=== PATIENT | female | born 1950 | race Caucasian/White ===

== ENCOUNTER 2017-12-10 10:47 | Inpatient (IN) | payer MEDICARE, BC ==
[2017-12-04 12:40] LABS: PRE OP PROTIME 10.6 SECONDS (9.0-12.0)
[2017-12-04 12:44] LABS: ALBUMIN 4.1 G/DL (3.4-5.0); ALBUMIN/GLOBULIN RATIO 0.9 (1.1-1.5); ALKALINE PHOSPHATASE 122 IU/L (46-116); BLOOD UREA NITROGEN 17 MG/DL (7-18); BUN/CREATININE RATIO 19.1 (6.6-38.0); CALCIUM 9.4 MG/DL (8.5-10.1); CHLORIDE 100 MMOL/L (99-107); CREATININE 0.89 MG/DL (0.40-0.90); PRE OP ALT 57 U/L (30-65); PRE OP ANION GAP 8 (8-16); PRE OP AST 52 U/L (10-37); PRE OP BILIRUB, TOTAL 0.4 MG/DL (0.0-1.0); PRE OP GLUCOSE 104 MG/DL (70-104); PRE OP POTASSIUM 4.2 MMOL/L (3.4-5.1); PRE OP SODIUM 134 MMOL/L (135-145); TOTAL CARBON DIOXIDE 25.7 MMOL/L (24-32); TOTAL PROTEIN 8.5 G/DL (6.4-8.2); eGFR 64 ML/MIN
[2017-12-04 12:45] LABS: BASOPHILS # (AUTO) 0.1 X10'3 (0-0.2); BASOPHILS % (AUTO) 0.6 % (0-1); EOSINOPHILS # (AUTO) 0.2 X10'3 (0-0.9); EOSINOPHILS % (AUTO) 1.8 % (0-6); LYMPHOCYTES # (AUTO) 1.7 X10'3 (1.1-4.8); MEAN CORPUSCULAR HEMOGLOBIN 28.9 PG (27.0-31.0); MEAN CORPUSCULAR VOLUME 87.4 FL (78-98); MONOCYTES # (AUTO) 0.6 X10'3 (0-0.9); MONOCYTES % (AUTO) 5.3 % (2-12); NEUTROPHILS # (AUTO) 7.8 X10'3 (1.8-7.7); NEUTROPHILS % (AUTO) 76.3 % (42-75); PRE OP HEMATOCRIT 42.7 % (35.0-45.0); PRE OP HEMOGLOBIN 14.1 g/dL (12.0-16.0); PRE OP PLATELET COUNT 333 X10'3 (140-440); RED BLOOD COUNT 4.88 X10'6 (4.20-5.60); RED CELL DISTRIBUTION WIDTH 12.8 % (11.5-14.5)
[2017-12-10] VITALS (15 sets, daily range): BP systolic 112–156; BP diastolic 61–100
[~2017-12-10] VITALS: Ht 166.4 cm; Wt 81.0 kg
[~2017-12-10 10:47] MED LIST: Cefazolin 2GM/50ML dext iso,osmotic IVPB IV ONE; FLUT1AER INH; HYDR12.5 PO; PARO40TA PO; POTA10CA44 PO; ROPI0.252 PO; SPIR1POW3 PO; acetaminophen 325mg tablet PO ONE; albuterol 2.5 MG/3 ML nebule NEB ONE; famotidine 20mg tablet PO ONE; gabapentin 300mg capsule PO ONE; metoclopramide 5 mg/ml inj IV ONE; oxyCODONE SR 10mg (sust. release) tab -2 tabs (20mg) PO ONE; ringers solution, lacted 1,000 ML IV SCH; tranexamic acid inj. 1,000 MG in normal saline 100ml IV soln 90 ML IV ONE; vancomycin inj 1,500 MG in normal saline 300ml IV soln IV ONE
[2017-12-10] MEDS ORDERED: ROPINIRole 0.25mg tablet PO ONE (12:15)
[2017-12-10] MEDS ORDERED: ringers solution, lacted 1,000 ML IV SCH (13:21)
[2017-12-10] MEDS ORDERED: proCHLORperazine 10 MG/2 ml inj IV PRN (13:25)
[2017-12-10] MEDS ORDERED: morphine 4 MG/ML inj SYRINge IV PRN ×2 (13:25)
[2017-12-10] MEDS ORDERED: ondansetron/PF 4mg/2ml inj IV PRN ×2 (13:25→18:10)
[2017-12-10] MEDS ORDERED: meperidine/PF 25mg/ml syringe IV PRN ×3 (13:25)
[2017-12-10] MEDS ORDERED: ketorolac trometh. 30mg/ml inj. ONE (14:38)
[2017-12-10] MEDS ORDERED: bacitracin 15gm ointment TP ONE (14:39)
[2017-12-10] MEDS ORDERED: ROPIVAcaine 0.5% (5mg/ml) 30ml vial ONE ×2 (14:39→15:39)
[2017-12-10] MEDS ORDERED: epiNEPHrine 1 mg/ml inj ONE (14:39)
[2017-12-10] MEDS ORDERED: morphine 10mg/ml inj. ONE (14:39)
[2017-12-10] MEDS ORDERED: ceFAZolin 1000mg inj ONE (14:39)
[2017-12-10] MEDS ORDERED: MIDAZolam 1mg/ml 10ml vial ONE (15:04)
[2017-12-10] MEDS ORDERED: morphine /PF 1mg/ml 10ml inj. ONE (15:04)
[2017-12-10] MEDS ORDERED: fentaNYL/PF 50MCG/1 ML 2ML syringe ONE (15:04)
[2017-12-10] MEDS ORDERED: Thrombin (Bovine) 5,000 unit vial TP ONE (15:37)
[2017-12-10] MEDS ORDERED: LIDOcaine 1%/PF 5ML 10 MG/ML VIAL ONE (15:42)
[2017-12-10] MEDS ORDERED: vancomycin 1,000mg inj ONE (15:54)
[2017-12-10] MEDS ORDERED: ceFAZolin 1000mg inj IR ONE (16:05)
[2017-12-10] MEDS ORDERED: ROPIVAcaine 0.5% (5mg/ml) 30ml vial IJ ONE (16:06)
[2017-12-10] MEDS ORDERED: ketorolac trometh. 30mg/ml inj. IM ONE (16:16)
[2017-12-10] MEDS ORDERED: epiNEPHrine 1 mg/ml inj IM ONE (16:17)
[2017-12-10] MEDS ORDERED: bisacodyl 10mg suppository rectal RC PRN (18:10)
[2017-12-10] MEDS ORDERED: diphenhydrAMINE 25mg capsule PO PRN ×2 (18:10)
[2017-12-10] MEDS ORDERED: acetaminophen 325mg tablet PO PRN (18:10)
[2017-12-10] MEDS ORDERED: magnesium hydroxide 30ml (MOM) UD suspension PO PRN (18:10)
[2017-12-10] MEDS ORDERED: HYDROmorphone inj. 0.5 MG/0.5 ML DISP.SYRIN IV PRN ×2 (18:10)
[2017-12-10] MEDS ORDERED: vancomycin/NS 1 GM ADD-VANTAGE 250 ML IV SCH (20:00)
[2017-12-10] MEDS ORDERED: tranexamic acid inj. 1,000 MG in normal saline 100ml IV soln 100 ML IV ONE (21:10)
[2017-12-10] MEDS: gabapentin 300mg capsule PO SCH (21:25)
[2017-12-10] MEDS: sennosides 8.6mg tablet PO SCH (21:25)
[2017-12-11 02:00] VITALS: BP 126/72
[2017-12-11] MEDS: potassium cl 20mEq in 1/2 NS 1,000 ML IV SCH ×3 (04:06→20:13)
[2017-12-11] MEDS: oxyCODONE IR 5mg (immed. release) tablet PO PRN ×4 (05:12→22:10)
[2017-12-11 06:00] VITALS: BP 126/77
[2017-12-11 06:10] LABS: BASOPHILS % (AUTO) 0.1 % (0-1); EOSINOPHILS # (AUTO) 0.2 X10'3 (0-0.9); EOSINOPHILS % (AUTO) 1.6 % (0-6); HEMATOCRIT 32.3 % (35.0-45.0); HEMOGLOBIN 11.1 g/dl (12.0-16.0); LYMPHOCYTES # (AUTO) 0.8 X10'3 (1.1-4.8); LYMPHOCYTES % (AUTO) 5.7 % (21-51); MEAN CORPUSCULAR HGB CONC 34.3 % (33.0-36.5); MEAN CORPUSCULAR VOLUME 87.3 FL (78-98); MEAN PLATELET VOLUME 7.8 FL (7.4-10.4); MONOCYTES # (AUTO) 0.6 X10'3 (0-0.9); MONOCYTES % (AUTO) 4.4 % (2-12); NEUTROPHILS # (AUTO) 12.3 X10'3 (1.8-7.7); NEUTROPHILS % (AUTO) 88.2 % (42-75); PLATELET COUNT 187 X10'3 (140-440); RED CELL DISTRIBUTION WIDTH 13.4 % (11.5-14.5)
[2017-12-11 06:25] LABS: ANION GAP 7 (8-16); CHLORIDE 104 MMOL/L (99-107); POTASSIUM 4.7 MMOL/L (3.5-5.1); SODIUM 137 MMOL/L (135-145); TOTAL CARBON DIOXIDE 26.4 MMOL/L (24-32)
[2017-12-11] MEDS: gabapentin 300mg capsule PO SCH ×3 (07:27→20:53)
[2017-12-11] MEDS: ceFAZolin 1GM/D5W- ADD-VANTAGE 50 ML IV SCH ×2 (07:28)
[2017-12-11] MEDS: enoxaparin 40mg/0.4ml syringe SQ SCH (07:28)
[2017-12-11] MEDS ORDERED: non-formulary drug (Fluticasone/Vilanterol (Breo Ellipta 100-25 Mcg INH) 1 PUFF) INH SCH (08:00)
[2017-12-11] MEDS: ROPINIRole 0.25mg tablet PO SCH ×2 (09:37→20:01)
[2017-12-11] MEDS: HYDROchlorothiazide 12.5mg capsule PO SCH (09:37)
[2017-12-11] MEDS: potassium chloride 10mEq ER tablet PO SCH ×2 (09:37→20:01)
[2017-12-11 10:00] VITALS: BP 102/60
[2017-12-11] MEDS: albuterol 2.5 MG/3 ML nebule NEB SCH ×3 (10:12→19:34)
[2017-12-11] MEDS ORDERED: HYDROmorphone 1 mg/ml syringe ONE ×2 (14:41→20:11)
[2017-12-11 18:00] VITALS: BP 115/63
[2017-12-11] MEDS: budesonide 0.5mg/2ml UD nebule IH SCH (19:34)
[2017-12-11] MEDS: celeCOXIB 100mg capsule PO SCH (20:01)
[2017-12-11 20:49] VITALS: BP 94/51
[2017-12-11] MEDS: spironolactone 25 MG tablet PO SCH (20:53)
[2017-12-11] MEDS: PARoxetine 20mg tablet PO SCH (20:54)
[2017-12-11] MEDS: sennosides 8.6mg tablet PO SCH (20:55)
[2017-12-11 22:00] VITALS: BP 111/45
[2017-12-12] MEDS: oxyCODONE IR 5mg (immed. release) tablet PO PRN ×6 (01:44→23:41)
[2017-12-12 06:00] VITALS: BP 117/69
[2017-12-12 07:16] LABS: BASOPHILS % (AUTO) 0.2 % (0-1); EOSINOPHILS # (AUTO) 0.1 X10'3 (0-0.9); EOSINOPHILS % (AUTO) 2.2 % (0-6); HEMATOCRIT 26.9 % (35.0-45.0); HEMOGLOBIN 9.3 g/dl (12.0-16.0); LYMPHOCYTES # (AUTO) 1.3 X10'3 (1.1-4.8); LYMPHOCYTES % (AUTO) 18.7 % (21-51); MEAN CORPUSCULAR HEMOGLOBIN 30.3 PG (27.0-31.0); MEAN CORPUSCULAR HGB CONC 34.6 % (33.0-36.5); MEAN CORPUSCULAR VOLUME 87.5 FL (78-98); MEAN PLATELET VOLUME 7.9 FL (7.4-10.4); MONOCYTES # (AUTO) 0.7 X10'3 (0-0.9); MONOCYTES % (AUTO) 10.1 % (2-12); NEUTROPHILS # (AUTO) 4.7 X10'3 (1.8-7.7); NEUTROPHILS % (AUTO) 68.8 % (42-75); PLATELET COUNT 129 X10'3 (140-440); RED BLOOD COUNT 3.08 X10'6 (4.20-5.60); WHITE BLOOD COUNT 6.8 X10'3 (4.5-11.0)
[2017-12-12] MEDS ORDERED: HYDROmorphone 1 mg/ml syringe ONE ×3 (07:22→20:18)
[2017-12-12] MEDS: celeCOXIB 100mg capsule PO SCH ×2 (07:25→20:23)
[2017-12-12] MEDS: enoxaparin 40mg/0.4ml syringe SQ SCH (07:26)
[2017-12-12] MEDS: gabapentin 300mg capsule PO SCH ×3 (07:26→20:23)
[2017-12-12] MEDS: ROPINIRole 0.25mg tablet PO SCH ×2 (07:26→20:22)
[2017-12-12] MEDS: HYDROchlorothiazide 12.5mg capsule PO SCH (07:27)
[2017-12-12] MEDS: potassium chloride 10mEq ER tablet PO SCH ×2 (07:27→20:23)
[2017-12-12] MEDS: budesonide 0.5mg/2ml UD nebule IH SCH ×2 (08:42→19:50)
[2017-12-12] MEDS: albuterol 2.5 MG/3 ML nebule NEB SCH ×4 (08:42→19:50)
[2017-12-12 10:00] VITALS: BP 105/69
[2017-12-12 18:00] VITALS: BP 130/79
[2017-12-12] MEDS: spironolactone 25 MG tablet PO SCH (20:22)
[2017-12-12] MEDS: PARoxetine 20mg tablet PO SCH (20:22)
[2017-12-12] MEDS: sennosides 8.6mg tablet PO SCH (20:23)
[2017-12-12 22:00] VITALS: BP 104/57
[2017-12-13] MEDS: oxyCODONE IR 5mg (immed. release) tablet PO PRN ×2 (05:03→10:23)
[2017-12-13 06:00] VITALS: BP 116/70
[2017-12-13 07:26] LABS: BASOPHILS % (AUTO) 0.7 % (0-1); EOSINOPHILS # (AUTO) 0.2 X10'3 (0-0.9); EOSINOPHILS % (AUTO) 2.6 % (0-6); HEMATOCRIT 27.7 % (35.0-45.0); HEMOGLOBIN 9.4 g/dl (12.0-16.0); LYMPHOCYTES # (AUTO) 1.2 X10'3 (1.1-4.8); LYMPHOCYTES % (AUTO) 17.2 % (21-51); MEAN CORPUSCULAR HEMOGLOBIN 29.9 PG (27.0-31.0); MEAN CORPUSCULAR HGB CONC 33.8 % (33.0-36.5); MEAN CORPUSCULAR VOLUME 88.4 FL (78-98); MEAN PLATELET VOLUME 8.1 FL (7.4-10.4); MONOCYTES # (AUTO) 0.7 X10'3 (0-0.9); NEUTROPHILS # (AUTO) 4.8 X10'3 (1.8-7.7); NEUTROPHILS % (AUTO) 69.5 % (42-75); PLATELET COUNT 159 X10'3 (140-440); RED BLOOD COUNT 3.13 X10'6 (4.20-5.60); RED CELL DISTRIBUTION WIDTH 14.3 % (11.5-14.5); WHITE BLOOD COUNT 6.9 X10'3 (4.5-11.0)
[2017-12-13] MEDS: albuterol 2.5 MG/3 ML nebule NEB SCH (07:45)
[2017-12-13] MEDS: budesonide 0.5mg/2ml UD nebule IH SCH (07:46)
[2017-12-13] MEDS: celeCOXIB 100mg capsule PO SCH (08:25)
[2017-12-13] MEDS: ROPINIRole 0.25mg tablet PO SCH (08:25)
[2017-12-13] MEDS: HYDROchlorothiazide 12.5mg capsule PO SCH (08:25)
[2017-12-13] MEDS: gabapentin 300mg capsule PO SCH (08:25)
[2017-12-13] MEDS: potassium chloride 10mEq ER tablet PO SCH (08:25)
[2017-12-14] MEDS ORDERED: enoxaparin 30mg/0.3ml syringe SUBCUT SCH (08:00)
== END 2017-12-13 10:40 | disposition home or self-care (01) | DRG 467 ==
LOC: PAS IN 10:47 → EDSTATUS 14:30 → ORTHO 4S 19:30
PROVIDERS: ADMIT Orthopaedic Surgery; ATTEND Orthopaedic Surgery
PROC: 0SRC069 Replacement of Right Knee Joint with Oxidized Zirconium on Polyethylene Synthetic Substitute, Cemented, Open Approach (ICD-10-PCS; 2017-12-10)
PROC: 0SPC0JZ Removal of Synthetic Substitute from Right Knee Joint, Open Approach (ICD-10-PCS; principal; 2017-12-10 14:55)
DX: T84.032A Mechanical loosening of internal right knee prosthetic joint, initial encounter (principal); D62 Acute posthemorrhagic anemia; I10 Essential (primary) hypertension; T84.84XA Pain due to internal orthopedic prosthetic devices, implants and grafts, initial encounter; F32.9 Major depressive disorder, single episode, unspecified; J44.9 Chronic obstructive pulmonary disease, unspecified; Y83.1 Surgical operation with implant of artificial internal device as the cause of abnormal reaction of the patient, or of later complication, without mention of misadventure at the time of the procedure; Y92.89 Other specified places as the place of occurrence of the external cause; Z88.8 Allergy status to other drugs, medicaments and biological substances
CPT/HCPCS: 0232T; 36415; 71046; 73560; 80051; 80053; 85025; 85610; 85730; 87070; 87075; 94640; 94760; 97110; 97116; 97161; 97530; A7000; A9272; C1713; C1758; C1776; J0171; J0690; J1170; J1650; J1885; J2001; J2250; J2270; J2274; J2765; J2795; J3010; J3370; J7030; J7120; J7626

== ENCOUNTER 2019-06-14 10:52 | Emergency (ER) | payer MEDICARE, BC ==
[~2019-06-14] VITALS: Ht 167.6 cm; Wt 76.5 kg
[~2019-06-14 10:52] MED LIST changes: +CYCL-1 PO; -Cefazolin 2GM/50ML dext iso,osmotic IVPB IV ONE; +DOCU100C40 PO; +HYDR-4383 PO; -acetaminophen 325mg tablet PO ONE; -albuterol 2.5 MG/3 ML nebule NEB ONE; -famotidine 20mg tablet PO ONE; -gabapentin 300mg capsule PO ONE; -metoclopramide 5 mg/ml inj IV ONE; -oxyCODONE SR 10mg (sust. release) tab -2 tabs (20mg) PO ONE; -ringers solution, lacted 1,000 ML IV SCH; -tranexamic acid inj. 1,000 MG in normal saline 100ml IV soln 90 ML IV ONE; -vancomycin inj 1,500 MG in normal saline 300ml IV soln IV ONE
[2019-06-14 11:34] LABS: BASOPHILS % (AUTO) 0.3 % (0-1); EOSINOPHILS # (AUTO) 0.1 X10'3 (0-0.9); EOSINOPHILS % (AUTO) 0.9 % (0-6); HEMATOCRIT 42.7 % (35.0-45.0); HEMOGLOBIN 14.6 g/dl (12.0-16.0); LYMPHOCYTES # (AUTO) 1.6 X10'3 (1.1-4.8); LYMPHOCYTES % (AUTO) 15.7 % (21-51); MEAN CORPUSCULAR HEMOGLOBIN 30.1 PG (27.0-31.0); MEAN CORPUSCULAR HGB CONC 34.1 g/dL (33.0-36.5); MEAN CORPUSCULAR VOLUME 88.2 FL (78-98); MEAN PLATELET VOLUME 7.4 FL (7.4-10.4); MONOCYTES # (AUTO) 0.5 X10'3 (0-0.9); MONOCYTES % (AUTO) 4.6 % (2-12); NEUTROPHILS # (AUTO) 7.9 X10'3 (1.8-7.7); NEUTROPHILS % (AUTO) 78.5 % (42-75); PLATELET COUNT 246 X10'3 (140-440); RED BLOOD COUNT 4.84 X10'6 (4.20-5.60); RED CELL DISTRIBUTION WIDTH 13.8 % (11.5-14.5); WHITE BLOOD COUNT 10.1 X10'3 (4.5-11.0)
[2019-06-14 11:47] LABS: ALANINE AMINOTRANSFERASE 39 U/L (12-78); ALKALINE PHOSPHATASE 99 IU/L (46-116); ANION GAP 5 (8-16); ASPARTATE AMINO TRANSFERASE 29 U/L (10-37); BILIRUBIN,TOTAL 0.5 MG/DL (0.1-1.0); BLOOD UREA NITROGEN 10 MG/DL (7-18); CALCIUM 9.2 MG/DL (8.5-10.1); CHLORIDE 103 MMOL/L (99-107); GLUCOSE 96 MG/DL (70-104); LIPASE < 50 U/L (73-393); POTASSIUM 4.4 MMOL/L (3.5-5.1); SODIUM 138 MMOL/L (135-145); TOTAL CARBON DIOXIDE 29.6 MMOL/L (24-32); TOTAL PROTEIN 8.1 G/DL (6.4-8.2); eGFR 55 ML/MIN
[2019-06-14 12:24] LABS: CLARITY,URINE SLIGHTLY CLOUDY (Clear); COLOR,URINE YELLOW (Yellow); GLUCOSE, URINE NEGATIVE (Neg); KETONES,URINE NEGATIVE (Neg); LEUKOCYTE ESTERASE ,URINE SMALL (Neg); NITRITES, URINE NEGATIVE (Neg); OCCULT BLOOD,URINE NEGATIVE (Neg); PROTEIN,URINE NEGATIVE (Neg); UROBILINOGEN,URINE 0.2 E.U/dL (0.2-1.0)
[2019-06-14 12:25] LABS: UA COLLECTION TYPE CLN CATCH MIDSTREAM
[2019-06-14] MEDS ORDERED: LIDOcaine Viscous 15ml cup MM STA (12:27)
[2019-06-14] MEDS ORDERED: famotidine 20mg tablet PO ONE (12:30)
[2019-06-14] MEDS ORDERED: normal saline 1000ML IV soln IVB ONE (12:30)
[2019-06-14] MEDS ORDERED: ketorolac tromethamine 15mg/ml inj. IV ONE (12:30)
[2019-06-14] MEDS ORDERED: mag hydrox/Alum hydrox/simeth 30ml oral suspension PO ONE (12:30)
[2019-06-14 12:33] LABS: BACTERIA,URINE FEW /HPF (Neg); MUCUS STRANDS FEW /LPF (Neg); RBC,URINE 0-2 /HPF (0-2); SQUAMOUS EPITHELIAL CELL,UR MANY /LPF (FEW); WBC CLUMPS,URINE FEW /HPF (NEGATIVE)
[2019-06-14] MEDS ORDERED: DICY10CA88 PO (14:16)
[2019-06-14] MEDS ORDERED: FAMO20TA8 PO (14:16)
[2019-06-14] MEDS ORDERED: NITR100C6 PO (14:16)
[2019-06-14] MEDS ORDERED: ONDA4TAB6 PO (14:16)
[2019-06-14 14:44] VITALS: BP 143/70
[2019-06-14 17:22] LABS: OCCULT BLOOD STOOL NEGATIVE (Neg)
== END 2019-06-14 14:31 | disposition home or self-care (01) ==
LOC: ER 10:53
DX: R10.13 Epigastric pain (principal); R11.2 Nausea with vomiting, unspecified; I10 Essential (primary) hypertension; J44.9 Chronic obstructive pulmonary disease, unspecified; Z87.891 Personal history of nicotine dependence; Z88.5 Allergy status to narcotic agent; Z79.899 Other long term (current) drug therapy
CPT/HCPCS: 36415; 80053; 81001; 82272; 83690; 84484; 85025; 93005; 96361; 96374; 99284; J1885; J7030

== ENCOUNTER 2019-06-29 10:01 | Emergency (ER) | payer MEDICARE, BC ==
[~2019-06-29] VITALS: Ht 172.7 cm; Wt 90.0 kg
[~2019-06-29 10:01] MED LIST changes: +DICY10CA88 PO; +FAMO20TA8 PO; +NITR100C6 PO; +ONDA4TAB6 PO
[2019-06-29] MEDS ORDERED: pantoprazole 40 MG vial IV ONE (10:20)
[2019-06-29] MEDS ORDERED: ondansetron/PF 4mg/2ml inj IV ONE (10:20)
--- NOTE | 2019-06-29 10:22 | NUR ---
pt failed to give a urine sample
[2019-06-29 10:44] LABS: BASOPHILS % (AUTO) 0.1 % (0-1); EOSINOPHILS # (AUTO) 0.1 X10'3 (0-0.9); EOSINOPHILS % (AUTO) 1.4 % (0-6); HEMATOCRIT 39.7 % (35.0-45.0); HEMOGLOBIN 13.6 g/dl (12.0-16.0); LYMPHOCYTES # (AUTO) 0.2 X10'3 (1.1-4.8); LYMPHOCYTES % (AUTO) 2.4 % (21-51); MEAN CORPUSCULAR HGB CONC 34.3 g/dL (33.0-36.5); MEAN CORPUSCULAR VOLUME 87.6 FL (78-98); MEAN PLATELET VOLUME 7.6 FL (7.4-10.4); MONOCYTES # (AUTO) 0.8 X10'3 (0-0.9); MONOCYTES % (AUTO) 10.2 % (2-12); NEUTROPHILS % (AUTO) 85.9 % (42-75); PLATELET COUNT 196 X10'3 (140-440); RED BLOOD COUNT 4.54 X10'6 (4.20-5.60); RED CELL DISTRIBUTION WIDTH 13.9 % (11.5-14.5); WHITE BLOOD COUNT 8.2 X10'3 (4.5-11.0)
[2019-06-29 10:58] LABS: ALANINE AMINOTRANSFERASE 31 U/L (12-78); ALBUMIN 3.5 G/DL (3.4-5.0); ALKALINE PHOSPHATASE 77 IU/L (46-116); ANION GAP 11 (8-16); ASPARTATE AMINO TRANSFERASE 43 U/L (10-37); BILIRUBIN,TOTAL 0.7 MG/DL (0.1-1.0); BLOOD UREA NITROGEN 11 MG/DL (7-18); CALCIUM 8.5 MG/DL (8.5-10.1); CHLORIDE 105 MMOL/L (99-107); GLUCOSE 148 MG/DL (70-104); LIPASE < 50 U/L (73-393); SODIUM 141 MMOL/L (135-145); TOTAL CARBON DIOXIDE 24.8 MMOL/L (24-32); TOTAL PROTEIN 7.1 G/DL (6.4-8.2); eGFR 50 ML/MIN
[2019-06-29] MEDS ORDERED: ketorolac trometh inj. 60 MG/2 ML VIAL IM ONE (11:05)
[2019-06-29] MEDS ORDERED: orphenadrine citrate 60mg/2ml inj. IM ONE (11:05)
[2019-06-29] MEDS ORDERED: morphine 4 MG/ML inj SYRINge IV ONE (11:25)
[2019-06-29 12:29] LABS: CLARITY,URINE CLEAR (Clear); COLOR,URINE YELLOW (Yellow); GLUCOSE, URINE NEGATIVE (Neg); KETONES,URINE NEGATIVE (Neg); LEUKOCYTE ESTERASE ,URINE SMALL (Neg); NITRITES, URINE NEGATIVE (Neg); OCCULT BLOOD,URINE TRACE-INTACT (Neg); PROTEIN,URINE NEGATIVE (Neg); UROBILINOGEN,URINE 0.2 E.U/dL (0.2-1.0)
[2019-06-29 12:36] LABS: UA COLLECTION TYPE CLN CATCH MIDSTREAM
[2019-06-29 12:48] LABS: MUCUS STRANDS MODERATE /LPF (Neg); SQUAMOUS EPITHELIAL CELL,UR MODERATE /LPF (FEW)
[2019-06-29 12:51] LABS: BACTERIA,URINE 1+ /HPF (Neg); RBC,URINE 0-2 /HPF (0-2); WBC,URINE 0-4 /HPF (0-4)
--- NOTE | 2019-06-29 13:20 | NUR ---
assumed care of pt from Odette [facility]
[2019-06-29] MEDS ORDERED: CYCL-1 PO (13:41)
[2019-06-29 13:55] VITALS: BP 109/55
== END 2019-06-29 13:57 | disposition home or self-care (01) ==
LOC: ER 10:01
DX: M54.9 Dorsalgia, unspecified (principal); R11.2 Nausea with vomiting, unspecified; R19.7 Diarrhea, unspecified; I10 Essential (primary) hypertension; J44.9 Chronic obstructive pulmonary disease, unspecified; Z88.8 Allergy status to other drugs, medicaments and biological substances; Z79.899 Other long term (current) drug therapy
CPT/HCPCS: 36415; 74176; 80053; 81001; 83690; 85025; 85610; 87088; 96372; 96374; 96375; 99284; C9113; J1885; J2270; J2360; J2405

== ENCOUNTER 2019-07-05 01:03 | Emergency (ER) | payer MEDICARE, BC ==
[~2019-07-05] VITALS: Ht 167.6 cm; Wt 75.9 kg
[2019-07-05] MEDS ORDERED: orphenadrine citrate 60mg/2ml inj. IM ONE (01:10)
[2019-07-05] MEDS ORDERED: ondansetron/PF 4mg/2ml inj IV ONE (01:10)
[2019-07-05] MEDS ORDERED: morphine 4 MG/ML inj SYRINge IV ONE (01:10)
[2019-07-05] MEDS ORDERED: ketorolac trometh. 30mg/ml inj. IV ONE (01:10)
[2019-07-05 01:49] VITALS: BP 149/87
== END 2019-07-05 01:51 | disposition home or self-care (01) ==
LOC: ER 01:03
DX: M54.5 Low back pain (principal); G89.29 Other chronic pain; R11.2 Nausea with vomiting, unspecified; I10 Essential (primary) hypertension; J44.9 Chronic obstructive pulmonary disease, unspecified; Z88.5 Allergy status to narcotic agent; Z79.899 Other long term (current) drug therapy
CPT/HCPCS: 96372; 96374; 96375; 99284; J1885; J2270; J2360; J2405

== ENCOUNTER 2021-12-05 12:39 | Emergency (ER) | payer MEDICARE, BC ==
[~2021-12-05] VITALS: Ht 167.6 cm; Wt 62.7 kg
[2021-12-05 12:42] VITALS: BP 169/96
[2021-12-05 13:10] LABS: BASOPHILS # (AUTO) 0.1 X10'3 (0-0.2); EOSINOPHILS # (AUTO) 0.1 X10'3 (0-0.9); EOSINOPHILS % (AUTO) 1.1 % (0-6); HEMATOCRIT 42.1 % (35.0-45.0); HEMOGLOBIN 14.2 g/dl (12.0-16.0); LYMPHOCYTES # (AUTO) 1.1 X10'3 (1.1-4.8); LYMPHOCYTES % (AUTO) 15.3 % (21-51); MEAN CORPUSCULAR HEMOGLOBIN 29.8 PG (27.0-31.0); MEAN CORPUSCULAR HGB CONC 33.8 g/dL (33.0-36.5); MEAN CORPUSCULAR VOLUME 88.1 FL (78-98); MEAN PLATELET VOLUME 7.4 FL (7.4-10.4); MONOCYTES # (AUTO) 0.3 X10'3 (0-0.9); MONOCYTES % (AUTO) 4.3 % (2-12); NEUTROPHILS # (AUTO) 5.4 X10'3 (1.8-7.7); NEUTROPHILS % (AUTO) 78.3 % (42-75); PLATELET COUNT 231 X10'3 (140-440); RED BLOOD COUNT 4.78 X10'6 (4.20-5.60); RED CELL DISTRIBUTION WIDTH 14.1 % (11.5-14.5); WHITE BLOOD COUNT 6.9 X10'3 (4.5-11.0)
[2021-12-05 13:25] LABS: ALANINE AMINOTRANSFERASE 33 U/L (12-78); ALBUMIN 3.8 G/DL (3.4-5.0); ALKALINE PHOSPHATASE 88 IU/L (46-116); ANION GAP 11 (8-16); ASPARTATE AMINO TRANSFERASE 23 U/L (10-37); BILIRUBIN,TOTAL 0.4 MG/DL (0.1-1.0); BLOOD UREA NITROGEN 11 MG/DL (7-18); BUN/CREATININE RATIO 11.8 (6.6-38.0); CHLORIDE 106 MMOL/L (99-107); CREATININE 0.93 MG/DL (0.40-0.90); GLUCOSE 182 MG/DL (70-104); POTASSIUM 4.1 MMOL/L (3.5-5.1); SODIUM 141 MMOL/L (135-145); TOTAL PROTEIN 7.5 G/DL (6.4-8.2); eGFR 60 ML/MIN
== END 2021-12-05 19:52 | disposition left against medical advice (07) ==
LOC: ER 12:40
DX: R53.83 Other fatigue (principal); R05.9 Cough, unspecified; R11.10 Vomiting, unspecified; R19.7 Diarrhea, unspecified; Z53.21 Procedure and treatment not carried out due to patient leaving prior to being seen by health care provider
CPT/HCPCS: 36415; 80053; 85025

== ENCOUNTER 2023-07-31 22:16 | Emergency (ER) | payer MEDICARE, BC ==
[~2023-07-31] VITALS: Ht 167.6 cm; Wt 65.9 kg
[~2023-07-31 22:16] MED LIST changes: +PARO-154 PO; -PARO40TA PO; -POTA10CA44 PO; +POTA10CA85 PO
[2023-07-31 22:41] VITALS: BP 119/70; PULSE 81; RESP 19; TEMP 97.9; O2SAT 91
== END 2023-07-31 23:47 | disposition home or self-care (01) ==
LOC: ER 22:16
DX: S93.402A Sprain of unspecified ligament of left ankle, initial encounter (principal); I10 Essential (primary) hypertension; G89.29 Other chronic pain; M54.9 Dorsalgia, unspecified; J44.9 Chronic obstructive pulmonary disease, unspecified; Z88.8 Allergy status to other drugs, medicaments and biological substances; W01.0XXA Fall on same level from slipping, tripping and stumbling without subsequent striking against object, initial encounter; Y93.89 Activity, other specified; Y92.009 Unspecified place in unspecified non-institutional (private) residence as the place of occurrence of the external cause; Y99.8 Other external cause status
CPT/HCPCS: 73610; 99284; L4360

== ENCOUNTER 2023-08-03 03:05 | Inpatient (IN) | payer MEDICARE, BC ==
[~2023-08-03] VITALS: Ht 167.6 cm; Wt 65.4 kg
[2023-08-03] MEDS: ondansetron/PF 4mg/2ml inj IV ONE (03:54)
[2023-08-03 04:16] LABS: ISTAT CREATININE 0.7 mg/dL (0.6-1.1); ISTAT HGB 13.6 g/dl (12.0-16.0); ISTAT IONIZED CALCIUM 1.23 mmol/L (1.03-1.32); ISTAT K 3.4 mmol/L (3.5-5.1); POC BUN/CREATININE RATIO 17.1 (6.6-38.0)
[2023-08-03] MEDS: HYDROmorphone 1 mg/ml syringe IV ONE (04:16)
[2023-08-03] MEDS: ringers solution, lacted 1,000 ML IV ONE (04:18)
[2023-08-03 04:20] LABS: BASOPHILS # (AUTO) 0.1 X10'3 (0-0.2); HEMATOCRIT 40.4 % (35.0-45.0); HEMOGLOBIN 13.9 g/dl (12.0-16.0); LYMPHOCYTES # (AUTO) 0.9 X10'3 (1.1-4.8); MEAN CORPUSCULAR HEMOGLOBIN 28.1 PG (27.0-31.0); MONOCYTES # (AUTO) 0.7 X10'3 (0-0.9)
[2023-08-03 04:22] LABS: BASOPHILS % (AUTO) 0.8 % (0-1); EOSINOPHILS # (AUTO) 0.2 X10'3 (0-0.9); EOSINOPHILS % (AUTO) 2.2 % (0-6); LYMPHOCYTES % (AUTO) 11.7 % (21-51); MEAN CORPUSCULAR HGB CONC 34.5 g/dL (33.0-36.5); MEAN CORPUSCULAR VOLUME 81.6 FL (78-98); MONOCYTES % (AUTO) 8.3 % (2-12); NEUTROPHILS # (AUTO) 6.2 X10'3 (1.8-7.7); PLATELET COUNT 264 X10'3 (140-440); RED BLOOD COUNT 4.95 X10'6 (4.20-5.60); RED CELL DISTRIBUTION WIDTH 14.6 % (11.5-14.5)
[2023-08-03] MEDS ORDERED: iohexol 300mg/ml 100ml inj. ONE (04:25)
[2023-08-03 04:37] LABS: ALANINE AMINOTRANSFERASE 16 U/L (12-78); ALBUMIN 3.5 G/DL (3.4-5.0); ALBUMIN/GLOBULIN RATIO 0.9 (1.1-1.5); ALKALINE PHOSPHATASE 87 IU/L (46-116); ANION GAP 11 (8-16); ASPARTATE AMINO TRANSFERASE 21 U/L (10-37); BILIRUBIN,TOTAL 0.6 MG/DL (0.1-1.0); BLOOD UREA NITROGEN 12 MG/DL (7-18); CALCIUM 9.2 MG/DL (8.5-10.1); CHLORIDE 106 MMOL/L (99-107); CREATININE 0.86 MG/DL (0.40-0.90); GLUCOSE 125 MG/DL (70-104); POTASSIUM 3.5 MMOL/L (3.5-5.1); SODIUM 142 MMOL/L (135-145); TOTAL CARBON DIOXIDE 24.7 MMOL/L (24-32); TOTAL PROTEIN 7.5 G/DL (6.4-8.2); eCRCL 57 ML/MIN; eGFR 65 ML/MIN
[2023-08-03 04:44] LABS: LIPASE 12 U/L (16-77); PRO BRAIN NATRIURETIC PEPTIDE 557 PG/ML (0-125)
[2023-08-03] MEDS: HYDROmorphone inj. 0.5 MG/0.5 ML DISP.SYRIN IV PRN ×2 (05:00→20:06)
[2023-08-03] MEDS: piperacillin/tazo 4.5gm/100ml 100 ML IV STA (06:39)
[2023-08-03] MEDS ORDERED: potassium Cl 20 mEq SR tablet PO PRN ×2 (08:30)
[2023-08-03] MEDS ORDERED: magnesium 4gm in 100ml NS 100 ML IV PRN (08:30)
[2023-08-03] MEDS ORDERED: morphine 2 MG/ML inj. syringe IV PRN (08:30)
[2023-08-03] MEDS ORDERED: magnesium 2GM in 50ml NS 50 ML IV PRN (08:30)
[2023-08-03] MEDS ORDERED: magnesium Cl slow-release 64mg tablet PO PRN (08:30)
[2023-08-03] MEDS ORDERED: magnesium hydroxide 30ml (MOM) UD suspension PO PRN (08:30)
[2023-08-03] MEDS ORDERED: potassium Cl 40MEQ/1/2NS 520ml 520 ML IV PRN (08:30)
[2023-08-03] MEDS ORDERED: mag hydrox/Alum hydrox/simeth 30ml oral suspension PO PRN (08:30)
[2023-08-03 09:42] LABS: BILIRUBIN,URINE NEGATIVE (Neg); CLARITY,URINE SLIGHTLY CLOUDY (Clear); COLOR,URINE YELLOW (Yellow); GLUCOSE, URINE NEGATIVE (Neg); KETONES,URINE NEGATIVE (Neg); LEUKOCYTE ESTERASE ,URINE NEGATIVE (Neg); NITRITES, URINE POSITIVE (Neg); OCCULT BLOOD,URINE TRACE-INTACT (Neg); PROTEIN,URINE 30 mg/dl (Neg); UROBILINOGEN,URINE 0.2 E.U/dL (0.2-1.0)
[2023-08-03 09:44] LABS: UA COLLECTION TYPE CLN CATCH MIDSTREAM
[2023-08-03 09:53] LABS: SQUAMOUS EPITHELIAL CELL,UR MODERATE /LPF (FEW)
[2023-08-03 09:54] LABS: MUCUS STRANDS FEW /LPF (Neg)
[2023-08-03 09:56] LABS: BACTERIA,URINE 4+ /HPF (Neg); RBC,URINE 0-2 /HPF (0-2); TRANSITIONAL EPI CELLS,URINE FEW /HPF; WBC,URINE 0-4 /HPF (0-4)
[2023-08-03] MEDS: dextrose 5%-1/2 normal saline 1,000 ML IV SCH (10:51)
[2023-08-03] MEDS: ondansetron/PF 4mg/2ml inj IV PRN (11:50)
[2023-08-03] MEDS ORDERED: LOSA100T58 PO (15:24)
[2023-08-03] MEDS ORDERED: HYDR-3965 PO (15:24)
[2023-08-03] MEDS ORDERED: GABA600T13 PO (15:24)
[2023-08-03] MEDS ORDERED: TRAZ150T78 PO (15:24)
[2023-08-03] MEDS ORDERED: ONDA-103 PO (15:24)
[2023-08-03 16:00] VITALS: RESP 20
[2023-08-03] MEDS ORDERED: ipratropium/albuterol 3ml nebule NEB PRN (16:20)
[2023-08-03] MEDS: proCHLORperazine 10 MG/2 ml inj IV PRN (16:25)
[2023-08-03] MEDS: morphine 2 MG/ML inj. syringe IV PRN (16:30)
[2023-08-03] MEDS: piperacillin/tazo 3.375gm/50ml 50 ML IV SCH (16:36)
[2023-08-03] MEDS: hydrALAZINE 20mg/ml inj. IV PRN (16:52)
[2023-08-03] MEDS ORDERED: BACL10TA2 PO (17:07)
[2023-08-03] MEDS ORDERED: FLUD0.1T PO (17:07)
[2023-08-03] MEDS ORDERED: BUSP10TA3 PO (17:07)
[2023-08-03 17:15] VITALS: PULSE 98; RESP 16; O2SAT 98
[2023-08-03] MEDS ORDERED: HYDROcodone/acetaminophen 5mg/325mg tablet PO PRN (17:50)
[2023-08-03] MEDS ORDERED: ondansetron 4mg rapidly disintigrating tab PO PRN (17:50)
[2023-08-03] MEDS: fludrocortisone acetate 0.1mg tablet PO SCH (17:50)
[2023-08-03] MEDS ORDERED: baclofen 10mg tablet PO PRN (17:50)
[2023-08-03 18:30] VITALS: RESP 20; O2SAT 96
[2023-08-03 19:00] VITALS: BP 192/99; PULSE 105; RESP 16; TEMP 97.4; O2SAT 96
[2023-08-03] MEDS ORDERED: traZODone 150mg tablet PO SCH (20:00)
[2023-08-03] MEDS: docusate sod 100mg capsule PO SCH (20:00)
[2023-08-03] MEDS: K and/or MAG REPLACEMENT MC SCH (20:00)
[2023-08-03] MEDS: ROPINIRole 0.25mg tablet PO SCH (20:00)
[2023-08-03 20:02] VITALS: PULSE 88; RESP 16; O2SAT 97
[2023-08-03] MEDS: budesonide 0.5mg/2ml UD nebule IH SCH (20:02)
[2023-08-03] MEDS: busPIRone 5mg tablet PO SCH (21:47)
[2023-08-03] MEDS: traZODone 150mg tablet PO SCH (21:47)
[2023-08-03] MEDS: enoxaparin 40mg/0.4ml syringe SQ SCH (21:48)
[2023-08-03] MEDS: PARoxetine 20mg tablet PO SCH (21:52)
[2023-08-03 22:00] VITALS: BP 164/84; PULSE 117; RESP 20; TEMP 96.9; O2SAT 99
[2023-08-04] MEDS ORDERED: albuterol 2.5 MG/3 ML nebule NEB SCH (03:00)
[2023-08-04 06:24] VITALS: BP 115/61; PULSE 88; RESP 18; TEMP 97; O2SAT 94
[2023-08-04 06:34] LABS: ALANINE AMINOTRANSFERASE 13 U/L (12-78); ALBUMIN 3.3 G/DL (3.4-5.0); ALBUMIN/GLOBULIN RATIO 0.9 (1.1-1.5); ALKALINE PHOSPHATASE 76 IU/L (46-116); ANION GAP 9 (8-16); ASPARTATE AMINO TRANSFERASE 22 U/L (10-37); BILIRUBIN,TOTAL 0.5 MG/DL (0.1-1.0); BLOOD UREA NITROGEN 9 MG/DL (7-18); BUN/CREATININE RATIO 10.6 (10.0-20.0); CALCIUM 8.9 MG/DL (8.5-10.1); CHLORIDE 103 MMOL/L (99-107); CREATININE 0.85 MG/DL (0.40-0.90); GLUCOSE 138 MG/DL (70-104); MAGNESIUM 1.9 MG/DL (1.5-2.4); SODIUM 135 MMOL/L (135-145); TOTAL PROTEIN 7.1 G/DL (6.4-8.2); eCRCL 58 ML/MIN; eGFR 66 ML/MIN
[2023-08-04 06:37] LABS: POTASSIUM 3.4 MMOL/L (3.5-5.1)
[2023-08-04 06:52] LABS: BASOPHILS # (AUTO) 0.1 X10'3 (0-0.2); BASOPHILS % (AUTO) 0.8 % (0-1); EOSINOPHILS % (AUTO) 0.5 % (0-6); HEMATOCRIT 35.1 % (35.0-45.0); HEMOGLOBIN 11.9 g/dl (12.0-16.0); LYMPHOCYTES # (AUTO) 0.6 X10'3 (1.1-4.8); LYMPHOCYTES % (AUTO) 9.1 % (21-51); MEAN CORPUSCULAR HEMOGLOBIN 27.9 PG (27.0-31.0); MEAN CORPUSCULAR HGB CONC 33.8 g/dL (33.0-36.5); MEAN CORPUSCULAR VOLUME 82.6 FL (78-98); MEAN PLATELET VOLUME 7.8 FL (7.4-10.4); MONOCYTES # (AUTO) 0.6 X10'3 (0-0.9); NEUTROPHILS # (AUTO) 5.2 X10'3 (1.8-7.7); NEUTROPHILS % (AUTO) 80.6 % (42-75); PLATELET COUNT 203 X10'3 (140-440); RED BLOOD COUNT 4.24 X10'6 (4.20-5.60); RED CELL DISTRIBUTION WIDTH 14.7 % (11.5-14.5); WHITE BLOOD COUNT 6.4 X10'3 (4.5-11.0)
[2023-08-04] MEDS: losartan 50mg tablet PO SCH (07:35)
[2023-08-04] MEDS: gabapentin 300mg capsule PO SCH (07:35)
[2023-08-04 08:00] VITALS: RESP 14; O2SAT 94
[2023-08-04] MEDS: ibuprofen 200mg tablet PO PRN (08:11)
[2023-08-04 08:35] VITALS: PULSE 79; RESP 16; O2SAT 92
[2023-08-04 10:36] VITALS: RESP 18
[2023-08-04 11:36] VITALS: BP 136/66; PULSE 89; RESP 20; TEMP 98.1; O2SAT 98
[2023-08-04] MEDS ORDERED: METR-159 PO (12:56)
[2023-08-04] MEDS ORDERED: CIPR-202 PO (12:56)
[2023-08-04] MEDS ORDERED: LOPE-190 PO (12:56)
[2023-08-04] MEDS ORDERED: ONDA4TAB12 PO (12:56)
== END 2023-08-04 13:50 | disposition home or self-care (01) | DRG 373 ==
LOC: ER 03:06 → ED HOLD 08:41 → SUR 3N 16:13
PROVIDERS: ADMIT Internal Medicine; ATTEND Internal Medicine
PROC: BW211ZZ Computerized Tomography (CT Scan) of Abdomen and Pelvis using Low Osmolar Contrast (ICD-10-PCS; principal; 2023-08-03)
DX: A04.9 Bacterial intestinal infection, unspecified (principal); J44.9 Chronic obstructive pulmonary disease, unspecified; G25.81 Restless legs syndrome; G47.00 Insomnia, unspecified; F32.9 Major depressive disorder, single episode, unspecified; E78.5 Hyperlipidemia, unspecified; M54.9 Dorsalgia, unspecified; M19.072 Primary osteoarthritis, left ankle and foot; G89.29 Other chronic pain; I10 Essential (primary) hypertension; Z96.651 Presence of right artificial knee joint; Z79.51 Long term (current) use of inhaled steroids; Z79.899 Other long term (current) drug therapy; Z87.891 Personal history of nicotine dependence; Z88.5 Allergy status to narcotic agent; Z90.49 Acquired absence of other specified parts of digestive tract; I71.21 Aneurysm of the ascending aorta, without rupture
CPT/HCPCS: 36415; 71045; 73610; 74177; 80047; 80053; 81001; 83690; 83735; 83880; 84484; 85025; 87077; 87088; 87186; 93005; 94760; 96365; 99285; A4615; G0378; J0360; J0780; J1170; J1650; J2270; J2405; J2543; J3490; J7120; Q9967